=== PATIENT | male | born 1995 | race Caucasian/White ===

== ENCOUNTER 2017-06-20 13:09 | Emergency (ER) | payer OTHER ==
[~2017-06-20] VITALS: Ht 175.3 cm; Wt 90.7 kg
[~2017-06-20 13:09] MED LIST: ALBU90OI INH; Augmentin 875-1 EACH PO; SPACE CHAMBER1 EACH MC; Ultram50 MG PO; Zithromax250 MG PO
== END 2017-06-20 14:19 | disposition home or self-care (01) ==
LOC: ER 13:09
DX: M79.672 Pain in left foot (principal); J45.909 Unspecified asthma, uncomplicated; F17.210 Nicotine dependence, cigarettes, uncomplicated
CPT/HCPCS: 73630; 99283

== ENCOUNTER 2017-11-07 07:07 | Emergency (ER) | payer OTHER ==
[~2017-11-07] VITALS: Ht 175.3 cm; Wt 90.7 kg
[2017-11-07] MEDS ORDERED: ALBU90OI6 INH (08:34)
== END 2017-11-07 08:40 | disposition home or self-care (01) ==
LOC: ER 07:07
DX: J40 Bronchitis, not specified as acute or chronic (principal); F17.210 Nicotine dependence, cigarettes, uncomplicated
CPT/HCPCS: 71046; 94640; 99283

== ENCOUNTER 2018-02-06 10:10 | Emergency (ER) | payer OTHER ==
[~2018-02-06] VITALS: Ht 177.8 cm; Wt 90.7 kg
[~2018-02-06 10:10] MED LIST changes: +ALBU90OI6 INH
[2018-02-06] MEDS ORDERED: CYCL10 PO (11:05)
== END 2018-02-06 11:13 | disposition home or self-care (01) ==
LOC: ER 10:10
DX: S39.012A Strain of muscle, fascia and tendon of lower back, initial encounter (principal); F17.200 Nicotine dependence, unspecified, uncomplicated; X50.1XXA Overexertion from prolonged static or awkward postures, initial encounter
CPT/HCPCS: 96372; 99282; J1885

== ENCOUNTER 2018-12-10 09:48 | Emergency (ER) | payer OTHER ==
[~2018-12-10] VITALS: Ht 175.3 cm; Wt 99.8 kg
[~2018-12-10 09:48] MED LIST changes: +CYCL10 PO
[2018-12-10] MEDS ORDERED: NAPR550 PO (10:58)
== END 2018-12-10 11:26 | disposition home or self-care (01) ==
LOC: ER 09:48
DX: S93.602A Unspecified sprain of left foot, initial encounter (principal); X50.9XXA Other and unspecified overexertion or strenuous movements or postures, initial encounter; Z79.899 Other long term (current) drug therapy; J45.909 Unspecified asthma, uncomplicated; F17.210 Nicotine dependence, cigarettes, uncomplicated
CPT/HCPCS: 73630; 99283-25

== ENCOUNTER → 2020-03-20 | Outpatient (CLI) | payer OTHER ==
[~2020-03-20] MED LIST changes: +NAPR550 PO
== END | disposition home or self-care (01) ==
LOC: LAB SHORT 17:29 → LAB EV 17:29
DX: Z20.828 Contact with and (suspected) exposure to other viral communicable diseases (principal)
CPT/HCPCS: U0003

== ENCOUNTER 2024-01-29 15:17 | Emergency (ER) | payer OTHER ==
[~2024-01-29] VITALS: Ht 175.3 cm; Wt 117.9 kg
[~2024-01-29 15:17] MED LIST changes: +CRUTCH2 XX; +IBU800 MG PO; +TRAM50 PO
[2024-01-29 16:14] VITALS: BP 150/104
[2024-01-29] MEDS ORDERED: Ibuprofen 400 MG Tab PO ONE (16:30)
[2024-01-29] MEDS ORDERED: Diphth,Pertuss(Acell),Tet Vac 0.5 ML VIAL IM ONE (16:30)
[2024-01-29] MEDS ORDERED: Norco 5-325 Ta1 EACH PO (17:18)
[2024-01-29] MEDS ORDERED: CEPH500 PO (17:18)
== END 2024-01-29 17:31 | disposition home or self-care (01) ==
LOC: ER 15:17
DX: S61.215A Laceration without foreign body of left ring finger without damage to nail, initial encounter (principal); F17.210 Nicotine dependence, cigarettes, uncomplicated; W23.1XXA Caught, crushed, jammed, or pinched between stationary objects, initial encounter
CPT/HCPCS: 73140; 90471; 90715; 99283-25; A9270